=== PATIENT | male | born 1960 | race American Indian/Alaskan Native ===

== ENCOUNTER 2017-08-15 10:43 | Emergency (ER) | payer MEDICARE ==
[2017-08-15 11:43] VITALS: BP 131/90
[2017-08-15] MEDS ORDERED: NORCO 5/325 PO ONE (12:49)
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
[2017-08-15] MEDS ORDERED: PERCOCET 5/325 PO ONE (15:21)
[2017-08-15] MEDS ORDERED: PERCOCET 5/325 ONE (15:22)
== END 2017-08-15 15:27 | disposition home or self-care (01) ==
LOC: ED 10:43
DX: S22.43XA Multiple fractures of ribs, bilateral, initial encounter for closed fracture (principal); S02.2XXA Fracture of nasal bones, initial encounter for closed fracture; I10 Essential (primary) hypertension; F17.200 Nicotine dependence, unspecified, uncomplicated; Z79.899 Other long term (current) drug therapy; Y04.8XXA Assault by other bodily force, initial encounter; Y93.89 Activity, other specified; Y99.8 Other external cause status; Y92.89 Other specified places as the place of occurrence of the external cause
CPT/HCPCS: 70450; 70486; 71111

== ENCOUNTER 2017-11-15 23:45 | Emergency (ER) | payer MEDICARE ==
[2017-11-16] MEDS ORDERED: LEVOPHED DRIP 4 MG/NS 250 ML 0 MG/0 ML BAG IV ONE (01:00)
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
[2017-11-16 05:52] LABS: Basophils % (Auto) 0.5 % (0.0-1.8); Eosinophils # (Auto) 0.1 K/mm3 (0.0-0.4); Eosinophils % (Auto) 1.6 % (0.0-4.3); Hematocrit 44.2 % (35.5-45.6); Hemoglobin 14.4 gm/dl (11.8-15.2); Lymphocytes # (Auto) 1.7 K/mm3 (1.2-5.4); Lymphocytes % (Auto) 20.4 % (13.4-35.0); Mean Corpuscular HGB Conc 33 % (32-34); Mean Corpuscular Hemoglobin 28 pg (28-32); Mean Corpuscular Volume 85 fl (84-94); Monocytes % (Auto) 12.4 % (0.0-7.3); Platelet Count 197 K/mm3 (140-440); Red Cell Distribution Width 13.8 % (13.2-15.2)
[2017-11-16 06:49] LABS: BUN/Creatinine Ratio 14; Blood Urea Nitrogen 13 mg/dL (9-20); Hemolysis Index 18
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
[2017-11-16 09:12] VITALS: BP 146/100
[2017-11-16] MEDS ORDERED: TORADOL IM ONE (09:20)
== END 2017-11-16 10:48 | disposition home or self-care (01) ==
LOC: ED 23:45
DX: S22.31XA Fracture of one rib, right side, initial encounter for closed fracture (principal); S00.91XA Abrasion of unspecified part of head, initial encounter; S19.9XXA Unspecified injury of neck, initial encounter; F10.120 Alcohol abuse with intoxication, uncomplicated; I10 Essential (primary) hypertension; F17.200 Nicotine dependence, unspecified, uncomplicated; Y08.89XA Assault by other specified means, initial encounter; Y93.89 Activity, other specified; Y92.89 Other specified places as the place of occurrence of the external cause; Y99.8 Other external cause status
CPT/HCPCS: 36415; 70450; 71046; 72125; 80048; 82550; 85025; 96372; 99284; G0480; J1885; 80320

== ENCOUNTER 2018-06-04 12:27 | Emergency (ER) | payer MEDICARE, OTHER ==
--- NOTE | 2018-06-04 12:41 | Emergency Department Report ---
Blank Doc - Documentation Documentation: This is a 58-year-old male that presents with body aches, URI symptoms and diz ziness. Patient stated has chest pain with cough. This initial assessment/diagnostic orders/clinical plan/treatment(s) is/are subject to change based on patient's health status, clinical progression and re- assessment by fellow clinical providers in the ED. Further treatment and workup at subsequent clinical providers discretion. Patient/guardians urged not to elope from the ED as their condition may be serious if not clinically assessed and managed. Initial orders include: 1- Patient sent to [facility] for further evaluation and treatment 2- CXR 3- EKG
[2018-06-04] MEDS ORDERED: LIDOCAINE VISCOUS 2% PO ONE (13:20)
[2018-06-04] MEDS ORDERED: ALUM-MAG HYDROX-SIMETH 200-200-20MG/5ML PO ONE (13:20)
[2018-06-04] MEDS ORDERED: ZOFRAN IV ONE (13:20)
[2018-06-04] MEDS ORDERED: NACL 0.9% 1000 ML 1,000 ML IV ONE (13:20)
[2018-06-04 13:23] LABS: Basophils # (Auto) 0.1 K/mm3 (0.0-0.1); Eosinophils % (Auto) 0.5 % (0.0-4.3); Hematocrit 48.5 % (35.5-45.6); Hemoglobin 16.2 gm/dl (11.8-15.2); Lymphocytes # (Auto) 1.4 K/mm3 (1.2-5.4); Lymphocytes % (Auto) 17.2 % (13.4-35.0); Mean Corpuscular HGB Conc 33 % (32-34); Mean Corpuscular Volume 85 fl (84-94); Monocytes # (Auto) 1.1 K/mm3 (0.0-0.8); Monocytes % (Auto) 13.4 % (0.0-7.3); Platelet Count 262 K/mm3 (140-440); Red Blood Count 5.71 M/mm3 (3.65-5.03); Red Cell Distribution Width 13.5 % (13.2-15.2)
[2018-06-04 13:35] LABS: INR 0.85 (0.87-1.13); Partial Thromboplastin Time 28.6 Sec. (24.2-36.6)
--- NOTE | 2018-06-04 13:35 | Emergency Department Report ---
ED Chest Pain HPI - General Chief Complaint: Chest Pain Stated Complaint: CHEST PAIN/SOB Time Seen by Provider: 06/04/18 12:40 Source: patient Mode of arrival: Ambulatory Limitations: No Limitations - History of Present Illness Initial Comments: 58-year-old male presents to the ED with complaint of chest pain, shortness of breath 3 days. Patient states pain is substernal, burning in nature and radiates to the back. Also reports several episodes of nausea and vomiting. Reports cough, denies fever. Patient states whenever he tries to eat anything it "comes back up." Patient reports difficulty swallowing. Reports tobacco use, denies alcohol and drug use. PCP: Dr Xavi GARCIA Complaint: chest pain -: days(s) (3) Onset: during rest, after eating Pain Location: substernal, epigastric Pain Radiation: back Severity: moderate Severity scale (0 -10): 9 Quality: tightness Consistency: intermittent Improves With: nothing Worsens With: nothing, eating re: nausea, vomting, dyspnea Other Symptoms: cough. denies: fever, leg swelling - Related Data Previous Rx's Medication Instructions Recorded Last Taken Type Fluticasone [Flonase] 1 spray NS QDAY #1 bottle 03/22/16 Unknown Rx HYDROcodone/APAP 5-325 [[place] 1 each PO Q6HR PRN #10 tablet 03/22/16 Unknown Rx 5/325] RX: Azithromycin [Zithromax Z-MILY] 250 mg PO DAILY #6 tab 03/22/16 Unknown Rx Ibuprofen [Motrin] 800 mg PO Q8HR PRN #20 tablet 08/15/17 Unknown Rx methOCARBAMOL [Robaxin TAB] 500 mg PO Q6H PRN #15 tablet 08/15/17 Unknown Rx oxyCODONE /ACETAMINOPHEN [Percocet 1 tab PO Q6HR PRN #14 tablet 08/15/17 Unknown Rx 5/325] HYDROcodone/APAP 5-325 [[place] 1 each PO Q6HR PRN #14 tablet 11/16/17 Unknown Rx 5/325] Ondansetron [Zofran Odt] 4 mg PO Q8HR PRN #14 tab.rapdis 11/16/17 Unknown Rx Benzonatate [Tessalon Perles] 100 mg PO Q8HR PRN #20 capsule 06/04/18 Unknown Rx Methocarbamol [Robaxin-750] 750 mg PO Q6HR PRN #20 tablet 06/04/18 Unknown Rx Ondansetron [Zofran Odt] 4 mg PO Q8HR PRN #20 tab.rapdis 06/04/18 Unknown Rx Ranitidine HCl [Zantac] 300 mg PO QDAY #30 tablet 06/04/18 Unknown Rx Allergies Allergy/AdvReac Type Severity Reaction Status Date / Time No Known Allergies Allergy Verified 03/22/16 13:13 Heart Score - HEART Score History: Slightly suspicious EKG: Normal Age: 45-65 Risk factors: 1-2 risk factors Troponin: < normal limit HEART Score: 2 ED Review of Systems ROS: Stated complaint: CHEST PAIN/SOB Other details as noted in HPI Comment: All other systems reviewed and negative Constitutional: denies: chills, fever Respiratory: cough, shortness of breath Cardiovascular: chest pain Gastrointestinal: nausea, vomiting. 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,angina - Surgical History Past Surgical History?: No - Social History Smoking Status: Current Every Day Smoker Substance Use Type: None - Medications Home Medications: Home Medications Medication Instructions Recorded Confirmed Last Taken Type Fluticasone [Flonase] 1 spray NS QDAY #1 bottle 03/22/16 Unknown Rx HYDROcodone/APAP 5-325 [[place] 1 each PO Q6HR PRN #10 tablet 03/22/16 Unknown Rx 5/325] RX: Azithromycin [Zithromax Z-MILY] 250 mg PO DAILY #6 tab 03/22/16 Unknown Rx Ibuprofen [Motrin] 800 mg PO Q8HR PRN #20 tablet 08/15/17 Unknown Rx methOCARBAMOL [Robaxin TAB] 500 mg PO Q6H PRN #15 tablet 08/15/17 Unknown Rx oxyCODONE /ACETAMINOPHEN [Percocet 1 tab PO Q6HR PRN #14 tablet 08/15/17 Unknown Rx 5/325] HYDROcodone/APAP 5-325 [[place] 1 each PO Q6HR PRN #14 tablet 11/16/17 Unknown Rx 5/325] Ondansetron [Zofran Odt] 4 mg PO Q8HR PRN #14 tab.rapdis 11/16/17 Unknown Rx Benzonatate [Tessalon Perles] 100 mg PO Q8HR PRN #20 capsule 06/04/18 Unknown Rx Methocarbamol [Robaxin-750] 750 mg PO Q6HR PRN #20 tablet 06/04/18 Unknown Rx Ondansetron [Zofran Odt] 4 mg PO Q8HR PRN #20 tab.rapdis 06/04/18 Unknown Rx Ranitidine HCl [Zantac] 300 mg PO QDAY #30 tablet 06/04/18 Unknown Rx ED Physical Exam - General Limitations: No Limitations General appearance: alert, in no apparent distress - Head Head exam: Present: atraumatic, normocephalic - Eye Eye exam: Present: normal appearance - ENT ENT exam: Present: mucous membranes moist - Neck Neck exam: Present: normal inspection - Respiratory Respiratory exam: Present: normal lung sounds bilaterally. Absent: respiratory distress - Cardiovascular Cardiovascular Exam: Present: normal rhythm, tachycardia - GI/Abdominal GI/Abdominal exam: Present: soft, tenderness (mild diffuse tenderness, worse in epigastric region). Absent: distended - Extremities Exam Extremities exam: Present: normal inspection. Absent: pedal edema, calf tenderness - Neurological Exam Neurological exam: Present: alert, oriented X3, CN II-XII intact. Absent: motor sensory deficit - Psychiatric Psychiatric exam: Present: normal affect, normal mood - Skin Skin exam: Present: warm, dry, intact, normal color. Absent: rash ED Course Vital Signs 06/04/18 06/04/18 06/04/18 12:41 14:01 15:45 Temperature 97.5 F L Pulse Rate 121 H 124 H 100 H Respiratory 22 25 H 15 Rate Blood Pressure 112/84 125/96 Blood Pressure 124/63 [Left] O2 Sat by Pulse 97 90 98 Oximetry - Reevaluation(s) Reevaluation #1: 06/04/18 15:53 Tachycardia resolved. Patient states burning pain has improved with , however, still having pain with twisting of torso, lifting of torso off of stretcher, palpation. Patient reported cough and vomiting over the last few days. Likely chest wall pain from this. EKG shows no ST changes, troponin normal x 2. ED Medical Decision Making - Lab Data Result diagrams: 06/04/18 13:02 06/04/18 13:02 - EKG Data -: EKG Interpreted by Me EKG shows normal: sinus rhythm, axis, intervals, QRS complexes, ST-T waves Rate: tachycardia (rate 109) - EKG Data Interpretation: no acute changes - Radiology Data Radiology results: report reviewed, image reviewed - Differential Diagnosis GERD, URI, PE, ACS Critical care attestation.: If time is entered above; I have spent that time in minutes in the direct care of this critically ill patient, excluding procedure time. ED Disposition Clinical Impression: Chest wall pain, Gastritis, URI (upper respiratory infection) Disposition: TO HOME OR SELFCARE Is pt being admited?: No Condition: Stable Instructions: Chest Pain (ED), Gastritis (ED), Costochondritis (ED), Upper Respiratory Infection (ED) Prescriptions: Methocarbamol [Robaxin-750] 750 mg PO Q6HR PRN #20 tablet PRN Reason: Spasms Benzonatate [Tessalon Perles] 100 mg PO Q8HR PRN #20 capsule PRN Reason: Cough Ranitidine HCl [Zantac] 300 mg PO QDAY #30 tablet Ondansetron [Zofran Odt] 4 mg PO Q8HR PRN #20 tab.rapdis PRN Reason: Vomiting Referrals: PRIMARY CARE, [Referring] - 3-5 Days [facility] [place] [Provider Group] - 3-5 Days BRITNI ARANDA MD [Staff Physician] - 3-5 Days Forms: Work/School Release Form(ED) Time of Disposition: 15:55
[2018-06-04 13:44] LABS: Alanine Aminotransferase 15 units/L (7-56); Albumin 4.5 g/dL (3.9-5); BUN/Creatinine Ratio 8; Blood Urea Nitrogen 11 mg/dL (9-20); Calcium 9.7 mg/dL (8.4-10.2); Hemolysis Index 26
--- NOTE | 2018-06-04 13:59 | XRay Report ---
XRAY CHEST TWO VIEWS: 06/04/18 12:27:00 CLINICAL: Cough. COMPARISON: 11/16/17 FINDINGS: Normal heart and pulmonary vasculature. The lungs are mildly hyperexpanded and hyperlucent. No airspace disease or pleural effusion.Right rib fractures have apparently healed since the last exam. IMPRESSION: COPD and no acute cardiopulmonary process.No pneumonia.
--- NOTE | 2018-06-04 14:49 | Cat Scan Report ---
CTA CHEST: CT ABDOMEN AND PELVIS: HISTORY: chest pain, abdominal pain. COMPARISON: none. TECHNIQUE: Helical CT in 1.25mm intervals following IV contrast. Sagittal and coronal reformatted images. Rotational MIP images. FINDINGS: Contrast bolus is satisfactory. The thoracic and abdominal aorta, celiac axis, SMA, ARDEN, bilateral iliac systems, single left renal artery and dual right renal arteries are patent with less than 20% stenosis. No evidence for atherosclerotic disease, aneurysm or dissection Heart and mediastinal structures are normal. The lungs are well-aerated. No interstitial or parenchymal lung disease. The liver, biliary system, pancreas, spleen, kidneys and adrenal glands are unremarkable. There are scattered diverticula in the colon. No evidence for acute inflammation. No bowel obstruction or obvious mass. Normal appendix. The bladder and distal ureters are unremarkable. No pelvic fluid collection, mass or adenopathy IMPRESSION: Unremarkable CTA of the chest, abdomen and pelvis.
[2018-06-04 15:46] VITALS: BP 124/63
== END 2018-06-04 16:31 | disposition home or self-care (01) ==
LOC: ED 12:27
DX: K29.70 Gastritis, unspecified, without bleeding (principal); R07.89 Other chest pain; J06.9 Acute upper respiratory infection, unspecified; I10 Essential (primary) hypertension; F17.200 Nicotine dependence, unspecified, uncomplicated; Z79.899 Other long term (current) drug therapy
CPT/HCPCS: 36415; 71046; 71275; 74174; 80053; 84484; 85025; 85379; 85610; 85730; 93005; 93010; 96361; 96374; 99285; J2405; J7030; Q9967

== ENCOUNTER 2019-04-08 13:17 | Emergency (ER) | payer MEDICARE, OTHER ==
--- NOTE | 2019-04-08 13:44 | Emergency Department Report ---
Blank Doc - Documentation Documentation: 59-year-old male that presents with testicular pain and swelling. This initial assessment/diagnostic orders/clinical plan/treatment(s) is/are subject to change based on patient's health status, clinical progression and re- assessment by fellow clinical providers in the ED. Further treatment and workup at subsequent clinical providers discretion. Patient/guardians urged not to elope from the ED as their condition may be serious if not clinically assessed and managed. Initial orders include: 1- Patient sent to [facility] for further evaluation and treatment 2- stat Ultrasound 3- UA
--- NOTE | 2019-04-08 14:26 | Ultrasound Report ---
ULTRASOUND TESTICULAR DOPPLER COMPLETE HISTORY: Left testicular swelling and pain for 2 days. TECHNIQUE: Grayscale ultrasound with color and spectral Doppler interrogation. COMPARISON: None. FINDINGS: The right testicle measures 4.1 x 2.3 x 3.5 cm. The left testicle measures 4.1 x 2.0 x 2.2 cm. No cameron dence for mass, cyst or calcifications. There appears to be hyperemia to the left testicle compared to the right on color Doppler interrogati on. Spectral Doppler waveforms demonstrate arterial flow bilaterally. The right epididymis is within normal limits. The left epididymis appears slightly enlarged and edema tous but no convincing hyperemia on color Doppler interrogation. A moderate to large left hydrocele containing fine internal septations is identified. IMPRESSION: Findings suggestive of left orchitis or left epididymoorchitis. Slightly complex left hydrocele. Plea se correlate with the clinical presentation of the patient. Signer Name: Romeo Ramos Jr, MD Signed: 04/08/2019 2:21 PM Workstation Name: [id number]
[2019-04-08 18:53] LABS: Bilirubin,Urine NEG (Negative); Blood,Urine SM (Negative); Color,Urine Yellow (Yellow); Mucus,Urine FEW /HPF; Protein,Urine <15 mg/dL mg/dL (Negative)
[2019-04-08] MEDS ORDERED: HYDROcodone/ACETAMINOPHEN 10-325MG TAB PO ONE (19:33)
[2019-04-08] MEDS ORDERED: levoFLOXacin 500 MG TAB PO ONE (19:50)
[2019-04-08] MEDS ORDERED: ACETAMINOPHEN 500 MG TAB PO ONE (19:51)
[2019-04-08] MEDS ORDERED: IBUPROFEN 800 MG TAB PO ONE (19:52)
--- NOTE | 2019-04-08 20:44 | Emergency Department Report ---
ED General Adult HPI - General Chief complaint: Urogenital-Male Stated complaint: PAIN Time Seen by Provider: 04/08/19 13:43 Source: patient Mode of arrival: Ambulatory Limitations: No Limitations - History of Present Illness Initial comments: 59 y.o. male with past history of hypertension presents with complaint of testicular pain for the past 2 days. Patient states he initially had the testicular pain 1 week ago and it resolved but recurred over the past 2 days. Patient complains of pain with urination. Patient denies any recent unprotected sex. Patient denies any trauma to the testicular region. Patient denies any abdominal pain or vomiting. Severity scale (0 -10): 5 - Related Data Previous Rx's Medication Instructions Recorded Last Taken Type Azithromycin [Zithromax Z-MILY] 250 mg PO DAILY #6 tab 03/22/16 Unknown Rx Fluticasone [Flonase] 1 spray NS QDAY #1 bottle 03/22/16 Unknown Rx HYDROcodone/APAP 5-325 [[place] 1 each PO Q6HR PRN #10 tablet 03/22/16 Unknown Rx 5/325] Ibuprofen [Motrin] 800 mg PO Q8HR PRN #20 tablet 08/15/17 Unknown Rx methOCARBAMOL [Robaxin TAB] 500 mg PO Q6H PRN #15 tablet 08/15/17 Unknown Rx oxyCODONE /ACETAMINOPHEN [Percocet 1 tab PO Q6HR PRN #14 tablet 08/15/17 Unknown Rx 5/325] HYDROcodone/APAP 5-325 [[place] 1 each PO Q6HR PRN #14 tablet 11/16/17 Unknown Rx 5/325] Ondansetron [Zofran Odt] 4 mg PO Q8HR PRN #14 tab.rapdis 11/16/17 Unknown Rx Benzonatate [Tessalon Perles] 100 mg PO Q8HR PRN #20 capsule 06/04/18 Unknown Rx Methocarbamol [Robaxin-750] 750 mg PO Q6HR PRN #20 tablet 06/04/18 Unknown Rx Ondansetron [Zofran Odt] 4 mg PO Q8HR PRN #20 tab.rapdis 06/04/18 Unknown Rx raNITIdine HCl [Zantac] 300 mg PO QDAY #30 tablet 06/04/18 Unknown Rx HYDROcodone/APAP 5-325 [[place] 1 each PO Q6HR PRN #20 tablet 04/08/19 Unknown Rx 5/325] levoFLOXacin [Levaquin TAB] 500 mg PO QDAY #10 tablet 04/08/19 Unknown Rx Allergies Allergy/AdvReac Type Severity Reaction Status Date / Time No Known Allergies Allergy Verified 03/22/16 13:13 ED Review of Systems ROS: Stated complaint: PAIN Other details as noted in HPI Constitutional: denies: chills, fever Eyes: denies: eye pain, eye discharge, vision change ENT: denies: ear pain, throat pain Respiratory: denies: cough, shortness of breath, wheezing Cardiovascular: denies: chest pain, palpitations Endocrine: no symptoms reported Gastrointestinal: denies: abdominal pain, nausea, diarrhea Genitourinary: dysuria, testicular pain Musculoskeletal: denies: back pain, joint swelling, arthralgia Skin: denies: rash, lesions Neurological: denies: headache, weakness, paresthesias Psychiatric: denies: anxiety, depression Hematological/Lymphatic: denies: easy bleeding, easy bruising ED Past Medical Hx - Past Medical History Previous Medical History?: Yes Hx Hypertension: Yes Additional medical history: "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,angina - Surgical History Past Surgical History?: No - Social History Smoking Status: Never Smoker Substance Use Type: None - Medications Home Medications: Home Medications Medication Instructions Recorded Confirmed Last Taken Type Azithromycin [Zithromax Z-MILY] 250 mg PO DAILY #6 tab 03/22/16 Unknown Rx Fluticasone [Flonase] 1 spray NS QDAY #1 bottle 03/22/16 Unknown Rx HYDROcodone/APAP 5-325 [[place] 1 each PO Q6HR PRN #10 tablet 03/22/16 Unknown Rx 5/325] Ibuprofen [Motrin] 800 mg PO Q8HR PRN #20 tablet 08/15/17 Unknown Rx methOCARBAMOL [Robaxin TAB] 500 mg PO Q6H PRN #15 tablet 08/15/17 Unknown Rx oxyCODONE /ACETAMINOPHEN [Percocet 1 tab PO Q6HR PRN #14 tablet 08/15/17 Unknown Rx 5/325] HYDROcodone/APAP 5-325 [[place] 1 each PO Q6HR PRN #14 tablet 11/16/17 Unknown Rx 5/325] Ondansetron [Zofran Odt] 4 mg PO Q8HR PRN #14 tab.rapdis 11/16/17 Unknown Rx Benzonatate [Tessalon Perles] 100 mg PO Q8HR PRN #20 capsule 06/04/18 Unknown Rx Methocarbamol [Robaxin-750] 750 mg PO Q6HR PRN #20 tablet 06/04/18 Unknown Rx Ondansetron [Zofran Odt] 4 mg PO Q8HR PRN #20 tab.rapdis 06/04/18 Unknown Rx raNITIdine HCl [Zantac] 300 mg PO QDAY #30 tablet 06/04/18 Unknown Rx HYDROcodone/APAP 5-325 [[place] 1 each PO Q6HR PRN #20 tablet 04/08/19 Unknown Rx 5/325] levoFLOXacin [Levaquin TAB] 500 mg PO QDAY #10 tablet 04/08/19 Unknown Rx ED Physical Exam - General Limitations: No Limitations General appearance: alert, other (mild distress) - Head Head exam: Present: atraumatic, normocephalic - Eye Eye exam: Present: normal appearance - ENT ENT exam: Present: mucous membranes moist - Neck Neck exam: Present: normal inspection - Respiratory Respiratory exam: Present: normal lung sounds bilaterally. Absent: respiratory distress - Cardiovascular Cardiovascular Exam: Present: regular rate, normal rhythm. Absent: systolic murmur, diastolic murmur, rubs, gallop - GI/Abdominal GI/Abdominal exam: Present: soft, normal bowel sounds - Rectal Rectal exam: Present: deferred - exam: Present: testicular tenderness External exam: Present: swelling (in left testicle) - Extremities Exam Extremities exam: Present: normal inspection - Back Exam Back exam: Present: normal inspection - Neurological Exam Neurological exam: Present: alert, oriented X3 - Psychiatric Psychiatric exam: Present: normal affect, normal mood - Skin Skin exam: Present: warm, dry, intact, normal color. Absent: rash ED Course Vital Signs 04/08/19 13:45 Temperature 98.9 F Pulse Rate 102 H Respiratory 18 Rate Blood Pressure 147/91 O2 Sat by Pulse 100 Oximetry ED Medical Decision Making - Medical Decision Making Patient treated for epididymal orchitis with levaquin therapy while in the emerg ency department. Patient be given urology follow-up and antibiotic treatment upon discharge. - Differential Diagnosis testicular torsion; epididymoorchitis; hydrocele; varicocele Critical care attestation.: If time is entered above; I have spent that time in minutes in the direct care of this critically ill patient, excluding procedure time. ED Disposition Clinical Impression: Epididymo-orchitis Disposition: TO HOME OR SELFCARE Is pt being admited?: No Condition: Stable Instructions: Epididymitis (ED) Prescriptions: levoFLOXacin [Levaquin TAB] 500 mg PO QDAY #10 tablet HYDROcodone/APAP 5-325 [[place] 5/325] 1 each PO Q6HR PRN #20 tablet PRN Reason: Pain Referrals: GWEN NATHAN MD [Staff Physician] - 3-5 Days Time of Disposition: 20:45 Print Language: CONGOLESE
[2019-04-08 20:56] VITALS: BP 121/81
== END 2019-04-08 20:57 | disposition home or self-care (01) ==
LOC: ED 13:17
DX: N45.3 Epididymo-orchitis (principal); I10 Essential (primary) hypertension; Z79.899 Other long term (current) drug therapy
CPT/HCPCS: 81001; 87086; 93975